=== PATIENT | female | born 2000 | race Caucasian/White ===

== ENCOUNTER 2024-01-30 12:01 | Inpatient (IN) | payer OTHER ==
[~2024-01-30] VITALS: Ht 165.1 cm; Wt 65.9 kg
[2024-01-30] MEDS: IV NS 0.9% 1,000 ML BAG IV ONE (12:55)
[2024-01-30] MEDS: ACETAMINOPHEN ES 500 MG TABLET PO ONE (12:55)
--- NOTE | 2024-01-30 12:55 | NUR ---
BIBS C/O DYSURIA X 4 DAYS, NOW HAVING FLANK PAIN.
[2024-01-30] MEDS ORDERED: ACETAMINOPHEN ES 500 MG TABLET ONE (13:00)
--- NOTE | 2024-01-30 13:00 | NUR ---
AWNING HANGER SUPERVISOR AT BEDSIDE FOR BLOOD WORKS
[2024-01-30] MEDS: CEFTRIAXONE 1GM BAG (ER ONLY) 50 ML IV ONE (13:22)
[2024-01-30 13:31] LABS: BASOPHILS # (AUTO) 0.2 K/uL (0.0-0.2); BASOPHILS % (AUTO) 1.1 % (0.0-2.0); HEMATOCRIT 38 % (33-45); HEMOGLOBIN 12.8 g/dL (11.5-14.8); LYMPHOCYTES # (AUTO) 0.6 K/uL (0.8-4.8); LYMPHOCYTES % (AUTO) 3.7 % (20.0-44.0); MEAN CORPUSCULAR HEMOGLOBIN 29 PG (26.0-33.0); MEAN CORPUSCULAR HGB CONC 34 g/dl (31.0-36.0); MEAN CORPUSCULAR VOLUME 87 fL (82-100); MONOCYTES # (AUTO) 1.1 K/uL (0.1-1.30); MONOCYTES % (AUTO) 7.3 % (2.0-12.0); NEUTROPHILS # (AUTO) 13.3 K/uL (1.8-8.9); NEUTROPHILS % (AUTO) 87.9 % (43.0-81.0); PLATELET COUNT (AUTO) 169 K/uL (150-450); RED BLOOD CELL COUNT(AUTO) 4.37 MIL/uL (4.0-5.2); RED CELL DISTRIBUTION WIDTH 12.8 % (11.5-15.0); WHITE BLOOD COUNT (AUTO) 15.1 K/uL (4.3-11.0)
[2024-01-30 13:33] LABS: LACTIC ACID 1.9 mmol/L (0.4-2.0)
[2024-01-30 13:35] LABS: APPEARANCE,URINE CLOUDY (CLEAR); BILIRUBIN,URINE NEGATIVE (NEGATIVE); BLOOD, URINE 2+ Ery/uL (NEGATIVE); COLOR,URINE DARK YELLOW (YELLOW); KETONES,URINE 2+ mg/dL (NEGATIVE); LEUKOCYTE ESTERASE ,URINE 2+ (NEGATIVE); NITRITE, URINE POSITIVE (NEGATIVE); PROTEIN,URINE 2+ mg/dl (NEGATIVE); UGLUCOSE NEGATIVE (NEGATIVE); UROBILINOGEN,URINE 0.2 EU/dL (0.2)
[2024-01-30 13:37] LABS: PREGNANCY TEST URINE QUAL NEGATIVE (NEGATIVE)
[2024-01-30 13:42] LABS: ADD URINE CULTURE YES; BACTERIA,URINE Few /HPF (None Seen); SQUAMOUS EPITHELIAL CELL,UR Rare /HPF (None Seen)
[2024-01-30 13:42] LABS: INR 1.11 (0.91-1.10); PROTHROMBIN TIME 11.7 SECS (9.2-11.1)
[2024-01-30 13:51] LABS: ALBUMIN 4.1 g/dL (3.4-5.0); BILIRUBIN,DIRECT 0.2 mg/dL (0.0-0.2); BILIRUBIN,TOTAL 0.9 mg/dL (0.2-1.0); CALCIUM, SERUM 9.5 mg/dL (8.5-10.1); CREATININE 0.8 mg/dL (0.6-1.3); POTASSIUM 3.5 mmol/L (3.5-5.1); TOTAL PROTEIN, SERUM 8.6 g/dL (6.4-8.2)
--- NOTE | 2024-01-30 14:16 | NUR ---
move sheet and clinicals submitted
[2024-01-30] MEDS ORDERED: MULT-1243 PO (14:23)
[2024-01-30] MEDS ORDERED: MULT-594 PO (14:23)
[2024-01-30] MEDS ORDERED: FERR325T23 PO (14:23)
[2024-01-30] MEDS ORDERED: CALC-1026 PO (14:23)
[2024-01-30] MEDS ORDERED: KETOROLAC TROMETHAMINE 15 MG/ML VIAL ONE (14:32)
[2024-01-30] MEDS: KETOROLAC TROMETHAMINE 15 MG/ML VIAL IV ONE (14:36)
--- NOTE | 2024-01-30 14:50 | NUR ---
contacted nurse sup for bed assignment
--- NOTE | 2024-01-30 15:24 | NUR ---
Rm 315-2, nurse Ariana
[2024-01-30] MEDS ORDERED: MAG HYDROX/AL HYDROX/SIMETH 30 ML UDC PO PRN (15:30)
[2024-01-30] MEDS ORDERED: ZOLPIDEM TARTRATE 5 MG TABLET PO PRN (15:30)
[2024-01-30] MEDS ORDERED: Z GUARD REMEDY 4 OZ OINT TP PRN (15:30)
[2024-01-30] MEDS ORDERED: MAGNESIUM HYDROXIDE 30 ML UDC PO PRN (15:30)
--- NOTE | 2024-01-30 15:34 | NUR ---
REPORT GIVEN TO ITA ARTIFICIAL LIMB MAKER ROOM 315-2 FOR JONO
--- NOTE | 2024-01-30 16:20 | NUR ---
ADMISSION NOTE PATIENT ARRIVED TO UNIT VIA GURNEY ABLE TO TRANSFER TO BED AMBULATING WITH STEADY GAIT. A/Ox4 ON ROOM AIR WITH NO S/S OF SOB OR DISTRESS. PATIENT IS ORIENTED TO ROOM AND CALL LIGHT. NO QUESTION AND CONCERNS AT THIS TIME. C/C ABD PAIN. PAIN MANAGEMENT IN PLACE . HX PROVIDED BY PATIENT. PATIENT SKIN INTACT WITH OLD L ARM SCARS FROM HX OF SELF HARM. DENIES SI/ HI. FALL AND SAFETY PRECAUTIONS IN PLACE PER PT/ UNIT GUIDELINES.
[2024-01-30] MEDS: MULTIVITAMINS,THERAGRAN 1 UDTAB TABLET PO SCH (17:48)
[2024-01-30] MEDS: ACETAMINOPHEN 325 MG TABLET PO PRN (18:24)
--- NOTE | 2024-01-30 19:30 | NUR ---
MS RN OPENING NOTES RECEIVED PATIENT AWAKE IN BED. MOTHER AT BED SIDE. A/O TIMES 4. NO PAIN NOTED. NO SOB NOTED. NO DISTRESS NOTED. IV ACCESS ON THE LAC # 20 INTACT AND STARTED IV HYDRATION OF NS AT 120 ML/HR. AMBULATORY AND ABLE TO ALK. MONITOR FO FEVER. ALL NEEDS ATTENDED. REMINDED TO USE CALL LIGHT FOR ASSISTANCE. VERBALIZED UNDERSTANDING. ALL SAFETY MEASURES IN PLACE. BED LOCKED IN THE LOWEST POSITION. CALL LIGHT AND TABLE IN EASY REACH. SIDE RAILS UP TIMES 2. PLAN OF CARE IS ONGOING.
--- NOTE | 2024-01-30 20:00 | NUR ---
RN NOTES NOTED PATIENT WITH FEVER OF 102.0 AND HR= 146. TYLENIL GIVEN AT 1824. NOT ABLE TO GIVE TYLENOL. COOLING MEASURES PROVIDED. IV FLUIDS ONGOING AT 120 ML/HR NS. ORAL JUICES PROVIDED TO THE PATIENT. WILLL MONITOR CLOSELY . MOTHER AT BED SIDE.
[2024-01-30] MEDS: IV NS 0.9% 1,000 ML IV PRN (20:18)
[2024-01-30 20:33] VITALS: BP 109/67; TEMP 102; O2SAT 98
[2024-01-30 21:56] VITALS: TEMP 100
--- NOTE | 2024-01-30 22:00 | NUR ---
RN NOTES RECHECKED THE FEVER NOTED 100.0 F. PULSE NOTED 127. PATIENT STARTED TO HAVE SHIVERS AND PAIN. NOTIFIED MD LARA WITH PATTIENT CONDITION AND INTERVENTIONS I DID. NEW ORDER OF MOTRIN 400 MG PO EVERY 6 HOURS PRN GIVEN TO THE PATIENT FOR MILD PAIN AND FEVER. ORDER NOTED AND CARRIED OUT.
[2024-01-30] MEDS: IBUPROFEN 400 MG TABLET PO PRN (22:41)
--- NOTE | 2024-01-30 22:41 | NUR ---
RN NOTES PRN MOTRIN 400MG PO GIVEN FOR PAIN 3/10 OF PELVIC. WILL ASSESS IN 1 HOUR.
[2024-01-30] MEDS: ONDANSETRON HCL/PF 4 MG/2 ML VIAL IVP PRN (23:18)
--- NOTE | 2024-01-30 23:18 | NUR ---
RN NOTES PRN IV ZOFRAN GIVEN FOR NAUSEA. WILL ASSESS IN 30 MIN.
--- NOTE | 2024-01-31 00:29 | NUR ---
RN NOTES PRN TYLENOL 650 MG PO GIVEN FOR FEVER AND HEADACHE. WILL ASSESS IN 1 HOUR.
[2024-01-31 02:00] VITALS: BP 99/64; TEMP 97.9; O2SAT 97; O2SAT 98
--- NOTE | 2024-01-31 02:00 | NUR ---
RN NOTES CHECKED VITAL SIGNS AT 0200 AM. BP=99/64, P=97, RR=19, T=97.9, 02=98% RA, NO PAIN. PATIENT HAPPY AND COMFORTABLE. WILL KEEP MONITORING CLOSELY.
--- NOTE | 2024-01-31 06:16 | NUR ---
MS RN CLOSING NOTES PATIENT AWAKE IN BED. A/O TIMES 4. NO PAIN NOTED. NO SOB NOTED. NO DISTRESS NOTED. IV ACCESS ON THE LAC # 20 INTACT IV HYDRATION OF NS AT 120 ML/HR. AMBULATORY AND ABLE TO WALK. MONITOR FOR FEVER. ALL NEEDS ATTENDED. REMINDED TO USE CALL LIGHT FOR ASSISTANCE. VERBALIZED UNDERSTANDING. NO FEVER AT THIS TIME.ALL SAFETY MEASURES IN PLACE. BED LOCKED IN THE LOWEST POSITION. CALL LIGHT AND TABLE IN EASY REACH. SIDE RAILS UP TIMES 2. PLAN OF CARE IS ONGOING. WILL ENDORSE FOR JONO.
[2024-01-31 06:54] LABS: BASOPHILS % (AUTO) 0.1 % (0.0-2.0); HEMATOCRIT 31 % (33-45); HEMOGLOBIN 10.6 g/dL (11.5-14.8); LYMPHOCYTES % (AUTO) 9.5 % (20.0-44.0); MEAN CORPUSCULAR HEMOGLOBIN 30 PG (26.0-33.0); MEAN CORPUSCULAR HGB CONC 34 g/dl (31.0-36.0); MEAN CORPUSCULAR VOLUME 88 fL (82-100); MONOCYTES % (AUTO) 9.2 % (2.0-12.0); NEUTROPHILS # (AUTO) 8.8 K/uL (1.8-8.9); NEUTROPHILS % (AUTO) 81.2 % (43.0-81.0); PLATELET COUNT (AUTO) 110 K/uL (150-450); RED BLOOD CELL COUNT(AUTO) 3.57 MIL/uL (4.0-5.2); RED CELL DISTRIBUTION WIDTH 12.6 % (11.5-15.0); WHITE BLOOD COUNT (AUTO) 10.9 K/uL (4.3-11.0)
[2024-01-31 07:00] VITALS: BP 110/69; TEMP 100; O2SAT 100
--- NOTE | 2024-01-31 07:00 | NUR ---
MS RN OPENING NOTE RECEIVED PATIENT AWAKE, A/OX4 AND ABLE TO MAKE NEEDS KNOWN. ON ROOM AIR, BREATHING IS EVEN AND UNLABORED. NO SOB AND NOT IN RESPIRATORY DISTRESS. SKIN IS DRY AND WARM TO TOUCH. IV ACCESS SITE ON LEFT AC #20GG, INTACT AND PATENT. NS @120ML/HR RUNNING AND INFUSING WELL. DENIES PAIN/DISCOMFORT AT THIS TIME. ENSURES SAFETY, BED ON LOWEST POSITION AND LOCKED. BED SIDE RAILS UP AND CALL LIGHT WITHIN REACH AT ALL TIMES.
[2024-01-31 07:48] LABS: CALCIUM, SERUM 8.5 mg/dL (8.5-10.1); CREATININE 0.6 mg/dL (0.6-1.3); MAGNESIUM 2.1 mg/dL (1.8-2.4); PHOSPHORUS 2.8 mg/dL (2.5-4.9); POTASSIUM 3.8 mmol/L (3.5-5.1)
[2024-01-31] MEDS: FERROUS SULFATE (325 MG) 325 MG/TAB TABLET PO SCH (08:08)
[2024-01-31] MEDS: CEFTRIAXONE 1 G in IV D5W 50 ML IV SCH (12:05)
--- NOTE | 2024-01-31 14:42 | NUR ---
MS RN NOTE PATIENT C/O FEELING OF DIZZINESS. ENCOURAGED PATIENT TO CALL FOR ASSISTANCE WHEN GETTING UP. MOM IS AT BEDSIDE. ADMINISTERED MEDICATION ORDERED.
[2024-01-31 16:00] VITALS: BP 112/73; TEMP 98.4; O2SAT 99
--- NOTE | 2024-01-31 18:48 | NUR ---
MS RN CLOSING NOTE PATIENT REMAINED STABLE ALL THROUGHOUT SHIFT. A/OX4 ABLE TO MAKE NEEDS KNOWN.ABLE TO AMBULATE AND WITH BATHROOM PRIVILEGE WITH STEADY GAIT BUT EDUCATED AND ENCOURAGED PT TO CALL FOR ASSISTANCE IF FEELING DIZZY, WEAK OR UNSTEADY. SKIN IS DRY AND WARM TO TOUCH. IV ACCESS SITE ON LEFT AC #20G REMAINED INTACT AND PATENT. NS @120ML/HR RUNNING AND INFUSING WELL. DENIES PAIN/DISCOMFORT AT THIS TIME. REMAINS AFEBRILE. MAINTAINED SAFETY MEASURES. BED ON LOWEST POSITION AND LOCKED. BED SIDE RAILS UP AND CALL LIGHT WITHIN REACH AT ALL TIMES.
--- NOTE | 2024-01-31 19:00 | NUR ---
RN OPENING NOTES: RECEIVED AWAKE IN BED, MOTHER PRESENT AT BED SIDE, A/OX4, COOPERATIVE, NO SIGN OF PAIN AND DISCOMFORT, ORIENTED TO UNIT AND STAFF, ON ROOM AIR, NO RESPIRATORY DISTRESS NOTED. SAFETY PRECAUTION OBSERVED.
[2024-01-31 20:00] VITALS: BP 115/65; TEMP 97.3; O2SAT 100
[2024-01-31 23:49] VITALS: BP 115/65; TEMP 97.3; O2SAT 100
--- NOTE | 2024-02-01 01:38 | NUR ---
RN NOTES: AROUND O126 PATIENT NOTIFIED RN THAT SHE FELT FEELING OF TIGHTNESS IN THE CHEST AND HEVINESS, LITTE PAIN ON THE LEFT SIDE OF THE ARM PIT, NON RADIATING TO THE LEFT SHOULDER, SHE FELT IT SINCE THIS MORNING WHEN SHE DEEP BREATH AND OCCASIONALLY FOR FEW SECONDS >10, Addendum: 02/01/24 at 0204 by MARÍA MARIANO RN ADDED NOTES: V/S BP-110/70 TX-96-106 IRREGULAR RR-21 SPO2-96% ROOM AIR, DR.J. BLACKMAN NOTIFIED SHE HAS FEVER AT AROUND 0106 HER TEMP-102 SHE WAS GIVEN TYLENOL PRN, HE INSTRUCT TO GIVE IBUPROFEN PRN FOR PAIN NOW.GIVEN AT 0138.
--- NOTE | 2024-02-01 02:11 | NUR ---
BINDU NOTES: IVF OF NS AT 120 ML/HR CONSUMED VIA IV PUMP , REPLACED WITH NEW BOTTLE, TOLERATED, IV SITE IS PATENT Addendum: 02/01/24 at 0423 by MARÍA MARAINO RN ADDED KENN ARREDONDO TEMP- 98.9
[2024-02-01 06:33] LABS: BASOPHILS % (AUTO) 0.1 % (0.0-2.0); EOSINOPHILS % (AUTO) 0.4 % (0.0-6.0); HEMATOCRIT 27 % (33-45); HEMOGLOBIN 9.4 g/dL (11.5-14.8); LYMPHOCYTES # (AUTO) 1.7 K/uL (0.8-4.8); MEAN CORPUSCULAR HEMOGLOBIN 30 PG (26.0-33.0); MEAN CORPUSCULAR HGB CONC 35 g/dl (31.0-36.0); MEAN CORPUSCULAR VOLUME 87 fL (82-100); MONOCYTES # (AUTO) 1.3 K/uL (0.1-1.30); MONOCYTES % (AUTO) 17.5 % (2.0-12.0); NEUTROPHILS # (AUTO) 4.5 K/uL (1.8-8.9); PLATELET COUNT (AUTO) 104 K/uL (150-450); RED BLOOD CELL COUNT(AUTO) 3.12 MIL/uL (4.0-5.2); RED CELL DISTRIBUTION WIDTH 12.7 % (11.5-15.0); WHITE BLOOD COUNT (AUTO) 7.5 K/uL (4.3-11.0)
--- NOTE | 2024-02-01 06:38 | NUR ---
RN NOTES: ABLE TO LSEEP AND TAKE A NAP, NO MORE PAIN OR DISOCMOFRT AT THIS TIME, AFEBRILE LATEST TEMP-97.5, SHE LOOKS HAPPY AND FRESH, MORNING CARE DONE, IVF OF NS AT 120 ML/HR ONGOING OF LAC G#20 PATENT. BM-O URINE-5X PAIN MEDICATION WAS EFFECTIVE, NO CHEST HEAVINESS NOTED IN THE MORNING, TO F/U URINE C/S RESULT,FOR LABS THIS MORNING.ENDORSED FOR CONTINUITY OF CARE.
--- NOTE | 2024-02-01 06:43 | NUR ---
RN CLOSING NOTES: REMAINS AFEBRILE, NO COMPLAINTS ENDORSED FOR CONTINUITY OF CARE.
[2024-02-01 06:47] LABS: CALCIUM, SERUM 8.1 mg/dL (8.5-10.1); CREATININE 0.6 mg/dL (0.6-1.3); POTASSIUM 3.5 mmol/L (3.5-5.1)
--- NOTE | 2024-02-01 07:00 | NUR ---
MS RN OPENING NOTE RECEIVED PATIENT SLEEPING COMFORTABLY IN BED, EASILY AWAKEN. A/OX4 AND ABLE TO MAKE NEEDS KNOWN. ON ROOM AIR, BREATHING IS EVEN AND UNLABORED. NO SOB AND NOT IN RESPIRATORY DISTRESS. SKIN IS DRY AND WARM TO TOUCH. IV ACCESS SITE ON LEFT AC #20GG, INTACT AND PATENT. NS @120ML/HR RUNNING AND INFUSING WELL. DENIES PAIN/DISCOMFORT AT THIS TIME. ENSURES SAFETY, BED ON LOWEST POSITION AND LOCKED. BED SIDE RAILS UP AND CALL LIGHT WITHIN REACH AT ALL TIMES.
--- NOTE | 2024-02-01 07:29 | NUR ---
RN NOTES: IV CANNULA IS LEAKING, SHE AGREE TO BE RESITED TO RAC G#20, 1 ATTEMPT MADE WITH GOOD BACK FLOW, SECURED WITH TRANSPARENT DRESSING
[2024-02-01 08:00] VITALS: BP 113/65; TEMP 98.6; O2SAT 100
[2024-02-01] MEDS ORDERED: NITR100C6 PO (11:09)
[2024-02-01] MEDS ORDERED: ACET325T53 PO (11:09)
--- NOTE | 2024-02-01 12:26 | NUR ---
MS FISHERIES INSPECTOR NOTE PATIENT REMAINED STABLE ALL THROUGHOUT SHIFT. A/OX4 AND ABLE TO MAKE NEEDS KNOWN. ON ROOM AIR, BREATHING IS EVEN AND UNLABORED. DISCHARGE INSTRUCTIONS GIVEN TO PATIENT WHO VERBALIZED UNDERSTANDING. IV ACCESS SITE DISCONTINUED AND REMOVED SAFELY. NO S/S OF BLEEDING/SWELLING/INFECTION NOTED ON THE SITE. DENIES PAIN/DISCOMFORT AT THIS TIME. NO FURTHER CONCERNS VERBALIZED. AMBULATORY AND ACCOMPANIED BY MOM. TRANSPORTED VIA PRIVATE CAR.
== END 2024-02-01 13:00 | disposition home or self-care (01) | DRG 872 ==
LOC: ER 12:01 → MED 15:37
PROVIDERS: ADMIT Nurse Practitioner Acute Care; ATTEND Nurse Practitioner Acute Care
DX: A41.9 Sepsis, unspecified organism (principal); N10 Acute pyelonephritis; B96.20 Unspecified Escherichia coli [E. coli] as the cause of diseases classified elsewhere
CPT/HCPCS: 36415; 80048-TC; 80076-TC; 81001; 83605-TC; 83735-TC; 84100-TC; 84703-TC; 85025-TC; 85730-TC; 87040-TC; 87086-TC; A4223; G0378; J0696; J1885; J2405; J7030; J7060